=== PATIENT | female | born 1980 | race Hispanic/Latino ===

== ENCOUNTER 2024-04-19 10:02 | Emergency (ER) | payer SELFPAY ==
[2024-04-19] MEDS ORDERED: Ondansetron PF 4 MG/2 ML Vial ONE (10:27)
[2024-04-19] MEDS ORDERED: Ketorolac Tromethamine 30 MG (1 mL) VIAL ONE (10:27)
[2024-04-19] MEDS ORDERED: Guaifenesin DM 100-10/5 ML UDCUP PO SCH (10:45)
[2024-04-19 10:55] LABS: #Basophils 0.04 10x3/uL (0.0-0.2); #Monocytes 0.75 10x3/uL (0.0-1.1); %Basophils 0.7 % (0.0-2.0); %Eosinophils 3.4 % (0.0-6.0); %Lymphocytes 12.3 % (18.0-47.0); %Monocytes 12.6 % (0.0-10.0); %Neutrophils 70.5 % (40.0-75.0); Hematocrit 39.8 % (34.9-44.5); Hemoglobin 13.3 g/dL (12.0-15.5); Mean Corpuscular HGB CONC 33.4 g/dL (32.0-36.0); Mean Corpuscular Hemoglobin 27.7 pg (27.0-33.0); Mean Corpuscular Volume 82.7 fL (81.6-98.3); Mean Platelet Volume 9.7 fL (7.4-10.4); Platelet Count 203 10x3/uL (150-450); RBC Distribution Width 11.9 % (11.5-14.5); Red Blood Cell (RBC) Count 4.81 10x6/uL (3.90-5.03); White Blood Cell (WBC) Count 5.95 10x3/uL (3.5-10.5)
[2024-04-19 11:08] LABS: BHCG - Serum Negative (NEGATIVE); Pregs Control Background? CLEAR/WHITE (CLR/WHITE); Pregs Control Bar Appear? YES (CONTROL BAR)
[2024-04-19 11:16] LABS: ALT (SGPT) 47 U/L (Less than 34); AST (SGOT) 41 U/L (11-34); Albumin 4.3 g/dL (3.1-4.5); Alkaline Phosphatase 77 U/L (40-110); Anion Gap 14 mmol/L (10-20); BUN (Urea Nitrogen) 7 mg/dL (7.0-18.7); Bilirubin, Total 0.5 mg/dL (0.3-1.2); Calc. Creatinine Clearance 0 mL/min (70-130); Calcium 9.4 mg/dL (7.8-10.44); Carbon Dioxide 20 mmol/L (22-29); Chloride 107 mmol/L (98-107); Estimated GFR 110; Globulin 3.4 g/dL (2.4-3.5); Glucose 132 mg/dL (70-105); Potassium 3.9 mmol/L (3.5-5.1); Protein, Total 7.7 g/dL (6.0-8.3); Sodium 137 mmol/L (136-145)
== END 2024-04-19 11:46 | disposition home or self-care (01) ==
LOC: CSHERS 10:02
DX: J11.1 Influenza due to unidentified influenza virus with other respiratory manifestations (principal)
CPT/HCPCS: 71046; 80053; 84703; 85025; 87428; 93005; 96361; 96374; 96375; J1885; J2405